=== PATIENT | male | born 1950 | race Caucasian/White ===

== ENCOUNTER → 2024-12-15 | Outpatient (CLI) | payer MEDICARE ==
[~2024-12-15] MED LIST: ISOVUE-370 76% 100ML VIAL As Ordered ONE; LISI20TA33 PO; METO1TAB7 PO
== END ==
LOC: M RAD 12:45
PROVIDERS: ATTEND Nurse Practitioner Women's Health
DX: Z85.46 Personal history of malignant neoplasm of prostate (principal); R97.20 Elevated prostate specific antigen [PSA]
CPT/HCPCS: 71260; 74177; Q9967